=== PATIENT | male | born 1945 | race Caucasian/White ===

== ENCOUNTER 2020-09-09 09:14 | Day surgery (SDC) | payer MEDICARE ==
[~2020-09-09] VITALS: Ht 177.8 cm; Wt 70.3 kg
[~2020-09-09 09:14] MED LIST: HYDROCHLOROT25 MG PO; LISINOPRIL10 MG PO; MAGNESIUM400 MG PO; PANTOPRAZOLE SO40 M1 PO; SIMVASTATIN40 MG PO; TAMSULOSIN HCL0.4 MG PO
[2020-09-09] MEDS ORDERED: PERCOCET 5/325M1 TAB PO (12:19)
[2020-09-09 12:48] VITALS: BP 147/80
== END 2020-09-09 13:04 | disposition home or self-care (01) ==
LOC: ORM 09:14
PROVIDERS: ATTEND Surgery
PROC: 0YU60JZ Supplement Left Inguinal Region with Synthetic Substitute, Open Approach (ICD-10-PCS; principal; 2020-09-09)
PROC: 0DJ08ZZ Inspection of Upper Intestinal Tract, Via Natural or Artificial Opening Endoscopic (ICD-10-PCS; 2020-09-09)
DX: K40.90 Unilateral inguinal hernia, without obstruction or gangrene, not specified as recurrent (principal); N43.3 Hydrocele, unspecified; R13.10 Dysphagia, unspecified; K44.9 Diaphragmatic hernia without obstruction or gangrene; I10 Essential (primary) hypertension; Z85.118 Personal history of other malignant neoplasm of bronchus and lung; Z20.822 Contact with and (suspected) exposure to COVID-19
CPT/HCPCS: C9290; J0131; J1100